=== PATIENT | male | born 1935 | race Caucasian/White ===

== ENCOUNTER → 2016-03-16 | Outpatient (CLI) | payer MEDICARE, BC ==
[2016-03-16 11:07] LABS: ABSOLUTE EOSINOPHILS # (AUTO) 0.7 10^3/uL (0.0-0.6); ABSOLUTE LYMPHOCYTES (AUTO) 1.2 10^3/uL (0.5-4.7); ABSOLUTE MONOCYTES (AUTO) 0.7 10^3/uL (0.1-1.4); ABSOLUTE NEUT (AUTO) 2.5 10^3/uL (1.7-8.2); BASOPHILS % (AUTO) 0.5 % (0-2); HEMATOCRIT 38.9 % (37.9-51.0); HEMOGLOBIN 12.5 g/dL (13.5-17.0); HGB HCT DIFFERENCE -1.4; LYMPHOCYTES % (AUTO) 22.9 % (13-45); MEAN CORPUSCULAR HEMOGLOBIN 33.7 pg (27.0-33.4); MEAN CORPUSCULAR HGB CONC 32.1 g/dL (32.0-36.0); MEAN CORPUSCULAR VOLUME 105 fl (80-97); RED CELL DISTRIBUTION WIDTH 14.1 % (11.5-14.0); SEGMENTED NEUTROPHILS % (AUTO) 49.6 % (42-78); WHITE BLOOD COUNT 5.1 10^3/uL (4.0-10.5)
[2016-03-16 11:35] LABS: ALANINE AMINOTRANSFERASE 24 U/L (21-72); ALBUMIN 3.4 g/dL (3.5-5.0); ALKALINE PHOSPHATASE 95 U/L (38-126); ANION GAP 10 (5-19); ASPARTATE AMINO TRANSFERASE 16 U/L (17-59); BILIRUBIN,TOTAL 0.8 mg/dL (0.2-1.3); BLOOD UREA NITROGEN 9 mg/dL (7-20); CARBON DIOXIDE 29 mmol/L (22-30); CHLORIDE 102 mmol/L (98-107); CREATININE RESULT 0.76 mg/dL (0.52-1.25); GLUCOSE 76 mg/dL (75-110); POTASSIUM 4.4 mmol/L (3.6-5.0); SODIUM 140.8 mmol/L (137-145); TOTAL PROTEIN 6.1 g/dL (6.3-8.2)
[2016-03-16 11:47] LABS: FREE T3 3.49 pg/mL (2.77-5.27)
[2016-03-16 11:48] LABS: ERYTHROCYTE SEDIMENTATION RATE 39 mm/hr (0-20)
[2016-03-16 12:01] LABS: THYROID STIMULATING HORMONE 1.01 uIU/mL (0.47-4.68)
[2016-03-17 17:20] LABS: APPEARANCE,URINE CLEAR; BILIRUBIN,URINE NEGATIVE (NEGATIVE); GLUCOSE, URINE NEGATIVE (NEGATIVE); KETONES,URINE 20 mg/dL (NEGATIVE); LEUKOCYTE ESTERASE,URINE NEGATIVE (NEGATIVE); NITRITE,URINE NEGATIVE (NEGATIVE); PROTEIN,URINE NEGATIVE (NEGATIVE); URINE SPECIFIC GRAVITY 1.016
== END ==
LOC: OD 10:02
PROVIDERS: ATTEND Internal Medicine
DX: R53.83 Other fatigue (principal); J06.9 Acute upper respiratory infection, unspecified; M79.1 Myalgia; M06.9 Rheumatoid arthritis, unspecified; K52.9 Noninfective gastroenteritis and colitis, unspecified
CPT/HCPCS: 36415; 80053; 81001; 84439; 84443; 84481; 85025; 85652; 87045; 87086; 87205; 87493

== ENCOUNTER → 2016-03-30 | Outpatient (CLI) | payer MEDICARE, BC | LOC: OD 10:49 | PROVIDERS: ATTEND Urology | DX: N40.0 Benign prostatic hyperplasia without lower urinary tract symptoms (principal) | CPT/HCPCS: 36415; 84153 ==

== ENCOUNTER → 2016-04-28 | Outpatient (CLI) | payer MEDICARE, BC ==
[2016-04-28 10:02] LABS: ABSOLUTE EOSINOPHILS # (AUTO) 0.3 10^3/uL (0.0-0.6); ABSOLUTE LYMPHOCYTES (AUTO) 1.3 10^3/uL (0.5-4.7); ABSOLUTE MONOCYTES (AUTO) 0.5 10^3/uL (0.1-1.4); BASOPHILS % (AUTO) 0.7 % (0-2); EOSINOPHILS % (AUTO) 6.8 % (0-6); HEMATOCRIT 35.7 % (37.9-51.0); HEMOGLOBIN 11.7 g/dL (13.5-17.0); HGB HCT DIFFERENCE -0.6; MEAN CORPUSCULAR HEMOGLOBIN 33.3 pg (27.0-33.4); MEAN CORPUSCULAR HGB CONC 32.8 g/dL (32.0-36.0); MEAN CORPUSCULAR VOLUME 101 fl (80-97); MONOCYTES % (AUTO) 11.6 % (3-13); RED BLOOD COUNT 3.53 10^6/uL (4.35-5.55); RED CELL DISTRIBUTION WIDTH 14.1 % (11.5-14.0); SEGMENTED NEUTROPHILS % (AUTO) 48.9 % (42-78); WHITE BLOOD COUNT 4.2 10^3/uL (4.0-10.5)
[2016-04-28 10:06] LABS: APPEARANCE,URINE CLEAR; BILIRUBIN,URINE NEGATIVE (NEGATIVE); GLUCOSE, URINE NEGATIVE (NEGATIVE); KETONES,URINE NEGATIVE (NEGATIVE); LEUKOCYTE ESTERASE,URINE NEGATIVE (NEGATIVE); NITRITE,URINE NEGATIVE (NEGATIVE); PROTEIN,URINE NEGATIVE (NEGATIVE); URINE SPECIFIC GRAVITY 1.013; UROBILINOGEN,URINE NEGATIVE mg/dL (<2.0)
== END ==
LOC: OD 08:58
PROVIDERS: ATTEND Student in an Organized Health Care Education/Training Program
DX: Z79.1 Long term (current) use of non-steroidal anti-inflammatories (NSAID) (principal)
CPT/HCPCS: 36415; 81001; 85025

== ENCOUNTER 2017-02-02 13:01 | Inpatient (IN) | payer MEDICARE, BC ==
[2017-02-02] MEDS ORDERED: ALBUTEROL SULFATE 0.083% NEB 2.5 MG/3 ML AMPUL NEB ONE (13:39)
[2017-02-02] MEDS ORDERED: LEVOFLOXACIN 500 MG/D5W RTU 500 MG/100 ML RTUPB IV ONE (13:39)
[2017-02-02] MEDS ORDERED: GUAIFENESIN/D-METHORPHAN (200-20 MG) SYRUP 10 ML PO ONE (13:39)
--- NOTE | 2017-02-02 13:41 | ER Document Report ---
ED Respiratory Problem - General Chief Complaint: Shortness Of Breath Stated Complaint: DIFFICULTY BREATHING Time Seen by Provider: 02/02/17 13:25 Mode of Arrival: Medic Information source: Patient, Relative Notes: Patient is an 81-year-old male who was diagnosed 2 days ago by his primary care provider with pneumonia and placed on Augmentin. Patient has not been taking it because he "cannot tolerate it." Patient has not eaten anything in 2 days per . She states he is very weak and has no appetite. They admit to chills and body aches at home but he denies any fever that he is noticed. He admits to productive cough. He does have asthma but no CHF or COPD. He denies any chest pain. He does state he has a history of some low platelets. TRAVEL OUTSIDE OF THE [place] IN LAST 30 DAYS: No - Related Data Allergies/Adverse Reactions: Sulfa (Sulfonamide Antibiotics) Allergy (Severe, Verified 01/04/16 11:51) ? morphine [Morphine] Adverse Reaction (Severe, Verified 06/18/15 22:33) Seizures Past Medical History - General Information source: Patient - Social History Smoking Status: Unknown if Ever Smoked Chew tobacco use (# tins/day): No Frequency of alcohol use: None Drug Abuse: None Family History: Other - Sister from lupus. Patient has suicidal ideation: No Patient has homicidal ideation: No - Past Medical History Cardiac Medical History: Reports: Hx Hypercholesterolemia Denies: Hx Coronary Artery Disease, Hx Heart Attack, Hx Hypertension - low Pulmonary Medical History: Reports: Hx Asthma - inhalers, Hx Bronchitis, Hx Pneumonia - in past Denies: Hx COPD, Hx Tuberculosis Neurological Medical History: Denies: Hx Cerebrovascular Accident, Hx Seizures Renal/ Medical History: Reports: Hx Benign Prostatic Hyperplasia. Denies: Hx Peritoneal Dialysis GI Medical History: Reports: Hx Ulcer - Peptic ulcer disease Musculoskeltal Medical History: Reports Hx Arthritis - Rheumatoid arthritis Psychiatric Medical History: Denies: Hx Depression Past Surgical History: Reports: Hx Appendectomy, Hx Genitourinary Surgery - Vasectomy, Hx Orthopedic Surgery - back x4 - Immunizations Hx Diphtheria, Pertussis, Tetanus Vaccination: Yes Hx Pneumococcal Vaccination: 02/26/10 Review of Systems - Review of Systems Constitutional: No symptoms reported EENT: No symptoms reported Cardiovascular: No symptoms reported Respiratory: See HPI Gastrointestinal: No symptoms reported Genitourinary: No symptoms reported Male Genitourinary: No symptoms reported Musculoskeletal: No symptoms reported Skin: No symptoms reported Hematologic/Lymphatic: No symptoms reported Neurological/Psychological: No symptoms reported Physical Exam - Vital signs Vitals: Resp Pulse Ox 27 H 99 02/02/17 13:14 02/02/17 13:14 - Notes Notes: PHYSICAL EXAMINATION: GENERAL: Mildly ill-appearing, but in no acute distress. HEAD: Atraumatic, normocephalic. EYES: Pupils equal round and reactive to light, extraocular movements intact, sclera anicteric, conjunctiva are normal. ENT: ear canals without erythema or foreign body, TMs pearly ellis with good bony landmarks, nares patent, oropharynx clear without exudates. Moist mucous membranes. NECK: Normal range of motion, supple without lymphadenopathy LUNGS: Mild expiratory wheezes, no rales or rhonchi. HEART: Regular rate and rhythm without murmurs ABDOMEN: Soft, no tenderness. No guarding, no rebound BACK: no vertebral tenderness, normal ROM GI/: no CVA tenderness EXTREMITIES: Normal range of motion, no pitting edema. No cyanosis. NEUROLOGICAL: Cranial nerves grossly intact. Normal sensory/motor exams. PSYCH: Normal mood, normal affect. SKIN: Warm, Dry, normal turgor, erythema to right upper back wrapping around to right upper torso with vesicular lesions c/w shingles Course - Re-evaluation Re-evalutation: 02/02/17 15:10 Patient has a likely right middle lobe pneumonia on x-ray today. Platelets are low at 68, patient does wax and wane with low platelets patient is needing to be on oxygen at this time to remain over 93% per patient and chart review. He was picked up at 80% on room air by EMS. Dr. Lebron agrees to admission now for pneumonia. I started levaquin. - Vital Signs Vital signs: Temp Pulse Resp BP Pulse Ox 98.7 F 21 H 111/65 98 02/02/17 13:41 02/02/17 14:01 02/02/17 14:01 02/02/17 14:01 - Laboratory Result Diagrams: 02/02/17 13:20 02/02/17 13:20 Laboratory results interpreted by me: 02/02/17 02/02/17 13:20 13:20 WBC 3.5 L RBC 4.02 L MCV 101 H MCH 34.7 H RDW 14.2 H Plt Count 68 L Sodium 133.3 L Direct Bilirubin 0.5 H Total Protein 5.5 L Albumin 3.1 L Discharge - Discharge Clinical Impression: Hypoxia Pneumonia Qualifiers: Pneumonia type: due to unspecified organism Laterality: right Lung location: unspecified part of lung Qualified Code(s): J18.9 - Pneumonia, unspecified organism Condition: Stable Disposition: ADMITTED INPATIENT Admitting Provider: Hospitalist Unit Admitted: Medical Floor Referrals: ROSE ALMARAZ MD [Primary Care Provider] - Follow up as needed
[2017-02-02 14:02] LABS: HEMATOCRIT 40.5 % (37.9-51.0); HGB HCT DIFFERENCE 1.5; MEAN CORPUSCULAR HEMOGLOBIN 34.7 pg (27.0-33.4); MEAN CORPUSCULAR HGB CONC 34.4 g/dL (32.0-36.0); MEAN CORPUSCULAR VOLUME 101 fl (80-97); RED BLOOD COUNT 4.02 10^6/uL (4.35-5.55); RED CELL DISTRIBUTION WIDTH 14.2 % (11.5-14.0); WHITE BLOOD COUNT 3.5 10^3/uL (4.0-10.5)
[2017-02-02 14:09] LABS: ALANINE AMINOTRANSFERASE 31 U/L (21-72); ALBUMIN 3.1 g/dL (3.5-5.0); ALKALINE PHOSPHATASE 75 U/L (38-126); ANION GAP 11 (5-19); ASPARTATE AMINO TRANSFERASE 17 U/L (17-59); BILIRUBIN,DIRECT 0.5 mg/dL (0.0-0.4); BILIRUBIN,TOTAL 1.3 mg/dL (0.2-1.3); BLOOD UREA NITROGEN 16 mg/dL (7-20); CALCIUM 8.4 mg/dL (8.4-10.2); CARBON DIOXIDE 23 mmol/L (22-30); CHLORIDE 99 mmol/L (98-107); CREATININE RESULT 0.89 mg/dL (0.52-1.25); GLUCOSE 83 mg/dL (75-110); POTASSIUM 4.5 mmol/L (3.6-5.0); SODIUM 133.3 mmol/L (137-145); TOTAL PROTEIN 5.5 g/dL (6.3-8.2)
[2017-02-02] MEDS ORDERED: LIDOCAINE 2% JELLY 30 ML TUBE TOP ONE (14:15)
[2017-02-02] MEDS ORDERED: HYDROCODONE/ACETAMINOPHEN 5-325 MG TABLET PO ONE ×2 (14:15→14:39)
[2017-02-02] MEDS ORDERED: HYDROCODONE/ACETAMINOPHEN 5-325 MG 6 TAB/DSPK PO PRN (14:17)
[2017-02-02 14:23] LABS: ABSOLUTE EOSINOPHILS# (MANUAL) 0.1 10^3/uL (0.0-0.6); BASOPHILS % (MANUAL) 0 % (0-2); EOSINOPHILS % (MANUAL) 3 % (0-6); LYMPHOCYTES % (MANUAL) 28 % (13-45); TOTAL CELLS COUNTED 100
[2017-02-02 14:25] LABS: ANISOCYTOSIS SLIGHT
[2017-02-02] MEDS ORDERED: LIDOCAINE 4% TOPICAL SOLN 50 ML TOP ONE (14:40)
--- NOTE | 2017-02-02 14:46 | RADIOLOGY REPORT (SQ) ---
EXAM DESCRIPTION: CHEST SINGLE VIEW COMPLETED DATE/TIME: 02/02/2017 2:37 pm REASON FOR STUDY: pneumonia/ sob COMPARISON: 01/04/2016 EXAM PARAMETERS: NUMBER OF VIEWS: One view. TECHNIQUE: Single frontal radiographic view of the chest acquired. RADIATION DOSE: NA LIMITATIONS: None. FINDINGS: LUNGS AND PLEURA: Low lung volumes. Chronic interstitial changes. Ill-defined opacificat ion in the left lung. MEDIASTINUM AND HILAR STRUCTURES: Hiatal hernia is suggested. HEART AND VASCULAR STRUCTURES: Heart normal in size. Normal vasculature. BONES: No acute findings. HARDWARE: None in the chest. OTHER: No other significant finding. IMPRESSION: Cannot exclude limited lingular or lower lobe pneumonia on the left. TECHNICAL DOCUMENTATION: JOB ID: [id number] [email or web address] All Rights Reserved
[2017-02-02 15:45] LABS: VENOUS BLOOD BASE EXCESS 1.5 mmol/L; VENOUS BLOOD HCO3 25.9 mmol/L (20-32); VENOUS BLOOD PCO2 40.1 mmHg (35-63); VENOUS BLOOD PH 7.43 (7.30-7.42)
[2017-02-02] MEDS ORDERED: ONDANSETRON HCL INJ/PF 4 MG/2 ML SDV IV PRN (16:02)
[2017-02-02] MEDS ORDERED: ONDANSETRON 4 MG TAB.RAPDIS PO PRN (16:02)
[2017-02-02] MEDS ORDERED: ACETAMINOPHEN 325 MG TABLET PO PRN (16:02)
--- NOTE | 2017-02-02 16:18 | PDOC H&P ---
History of Present Illness Admission Date/PCP: 02/02/17 15:22 ROSE ALMARAZ, Patient complains of: Cough and shortness of breath History of Present Illness: AMBER HINSON is a 81 year old male with a history of rheumatoid arthritis who presents with a 3 day history of a nonproductive cough and shortness of breath. The patient was recently diagnosed with shingles on his right chest in the T4-T5 distribution. He has been taking Valtrex but has had pain and has not been breathing as well. He has had a nonproductive cough. He is also had some fevers and chills. Patient with chest x-ray today was found to have pneumonia. Patient denies any lower extremity edema. He denies any orthopnea or PND. He is however unable to sleep out of bed because of his chronic back pain and multiple kyphoplasty's. He reports he gets short of breath with minimal exertion at this time. He denies any cardiac type chest pain. He does have right-sided chest wall pain related to his recent shingles diagnosis. The patient denies any recent travel. He is on immunosuppressants for his rheumatoid arthritis in the form of prednisone, methotrexate, Plaquenil. Patient is admitted for treatment of his pneumonia. Past Medical History Cardiac Medical History: Reports: Hyperlipidema Denies: Coronary Artery Disease, Myocardial Infarction, Hypertension - low Pulmonary Medical History: Reports: Asthma - inhalers, Bronchitis, Pneumonia - in past Denies: Chronic Obstructive Pulmonary Disease (COPD), Tuberculosis EENT Medical History: Reports: Cataracts Neurological Medical History: Denies: Seizures Endocrine Medical History: Reports: None Renal/ Medical History: Reports: None Malignancy Medical History: Reports: None GI Medical History: Reports: None Musculoskeltal Medical History: Reports: Arthritis - Rheumatoid arthritis Skin Medical History: Reports: Other - Herpes zoster in the right chest Psychiatric Medical History: Denies: Depression Traumatic Medical History: Reports: None Hematology: Reports: Anemia - hx of Infectious Medical History: Reports: None Past Surgical History Past Surgical History: Reports: Appendectomy, Orthopedic Surgery - back x4 Social History Information Source: Patient Lives with: Spouse/Significant other Smoking Status: Former Smoker Frequency of Alcohol Use: Occasional Hx Recreational Drug Use: No Drugs: None Hx Prescription Drug Abuse: No - Advance Directive Resuscitation Status: Full Code Surrogate healthcare decision maker:: His Family History Family History: Other - Sister from lupus. Family History: Father at age 69 from COPD. Mother at age 89 with coronary artery disease. Parental Family History Reviewed: Yes Children Family History Reviewed: No Sibling(s) Family History Reviewed.: No Medication/Allergy Allergies/Adverse Reactions: Sulfa (Sulfonamide Antibiotics) Allergy (Severe, Verified 01/04/16 11:51) ? morphine [Morphine] Adverse Reaction (Severe, Verified 06/18/15 22:33) Seizures Review of Systems Constitutional: PRESENT: anorexia, chills, fever(s), weight loss. ABSENT: headache(s), night sweats, weight gain Eyes: ABSENT: visual disturbances Ears: ABSENT: hearing changes Cardiovascular: PRESENT: dyspnea on exertion. ABSENT: chest pain, edema, orthropnea, palpitations Respiratory: PRESENT: cough, dyspnea. ABSENT: hemoptysis, sputum Gastrointestinal: ABSENT: abdominal pain, constipation, diarrhea, hematemesis, hematochezia, nausea, vomiting Genitourinary: PRESENT: difficulty urinating, other - Urinary incontinence Musculoskeletal: PRESENT: back pain Integumentary: PRESENT: other - Herpes zoster on the right T4-T5 nerve root distribution Neurological: PRESENT: confusion, dizziness, lack of coordination Psychiatric: ABSENT: anxiety, depression Endocrine: ABSENT: cold intolerance, heat intolerance, polydipsia, polyuria Hematologic/Lymphatic: ABSENT: easy bleeding, easy bruising Physical Exam Vital Signs: Temp Pulse Resp BP Pulse Ox 98.7 F 21 H 111/65 98 02/02/17 13:41 02/02/17 14:01 02/02/17 14:01 02/02/17 14:01 General appearance: PRESENT: no acute distress, thin Head exam: PRESENT: atraumatic, normocephalic Eye exam: PRESENT: conjunctiva pink, EOMI, PERRLA. ABSENT: scleral icterus Ear exam: PRESENT: normal external ear exam Mouth exam: PRESENT: moist, tongue midline Neck exam: ABSENT: carotid bruit, JVD, lymphadenopathy, thyromegaly Respiratory exam: PRESENT: chest wall tenderness - Right chest wall in the area of the shingles., rales - Left basilar. ABSENT: rhonchi, wheezes Cardiovascular exam: PRESENT: RRR. ABSENT: diastolic murmur, rubs, systolic murmur Vascular exam: PRESENT: normal capillary refill GI/Abdominal exam: PRESENT: normal bowel sounds, soft. ABSENT: distended, guarding, mass, organolmegaly, rebound, tenderness Rectal exam: PRESENT: deferred Extremities exam: ABSENT: calf tenderness, clubbing, pedal edema Neurological exam: PRESENT: alert, awake, oriented to person, oriented to place , oriented to time, oriented to situation, CN II-XII grossly intact. ABSENT: motor sensory deficit Psychiatric exam: PRESENT: appropriate affect Skin exam: PRESENT: other - Erythematous papular rash in the right T4-T5 nerve root distribution on the posterior radiate around to the anterior chest wall Consistent with herpes zoster Results Laboratory Results: 02/02/17 15:30 VBG pH 7.43 H VBG pCO2 40.1 VBG HCO3 25.9 VBG Base Excess 1.5 Impressions: Chest X-Ray 02/02/17 13:39 IMPRESSION: Cannot exclude limited lingular or lower lobe pneumonia on the left. Assessment & Plan - Diagnosis (1) Pneumonia Qualifiers: Pneumonia type: due to unspecified organism Laterality: right Lung location: unspecified part of lung Qualified Code(s): J18.9 - Pneumonia, unspecified organism Is this a current diagnosis for this admission?: Yes Plan: Patient has community-acquired pneumonia. Most likely made worse by his recent diagnosis of shingles that has caused him significant pain with breathing. We will treat with Levaquin for presumed gram-positive cocci. We will hold his methotrexate and Plaquenil given the acute infection. We will give stress dose steroids of prednisone 10 mg. (2) Herpes zoster Is this a current diagnosis for this admission?: Yes Plan: We will continue with the Valtrex that he has been taking at home. (3) Rheumatoid arthritis Is this a current diagnosis for this admission?: Yes Plan: We will hold the Plaquenil methotrexate. Will give higher dose of prednisone. (4) Chronic back pain Is this a current diagnosis for this admission?: Yes Plan: Continue with the narcotics as needed. (5) Asthma Is this a current diagnosis for this admission?: Yes Plan: We will give nebulizers as needed. - Time Time Spent: 50 to 70 Minutes - Inpatient Certification Medical Necessity: Need for IV Antibiotics
[2017-02-02] MEDS ORDERED: NORMAL SALINE 1000 ML 1,000 ML IV ONE ×2 (16:39→22:01)
[2017-02-02] MEDS: NORMAL SALINE 1000 ML 1,000 ML IV PRN (18:31)
[2017-02-02] MEDS: IPRATROPIUM/ALBUTEROL 0.5-2.5 MG/3 ML AMPUL NEB SCH (20:01)
[2017-02-02 20:47] LABS: APPEARANCE,URINE CLEAR; BILIRUBIN,URINE NEGATIVE (NEGATIVE); GLUCOSE, URINE NEGATIVE (NEGATIVE); KETONES,URINE NEGATIVE (NEGATIVE); LEUKOCYTE ESTERASE,URINE NEGATIVE (NEGATIVE); NITRITE,URINE NEGATIVE (NEGATIVE); PROTEIN,URINE NEGATIVE (NEGATIVE); URINE SPECIFIC GRAVITY 1.005; UROBILINOGEN,URINE NEGATIVE mg/dL (<2.0)
--- NOTE | 2017-02-02 21:50 | EKG REPORT ---
SEVERITY:- ABNORMAL ECG - SINUS RHYTHM ATRIAL PREMATURE COMPLEX LEFT ANTERIOR FASCICULAR BLOCK : Confirmed by: Mercedes Boles 02-Feb-2017 21:49:14
[2017-02-02] MEDS ORDERED: VALACYCLOVIR HCL 500 MG TABLET ONE (22:58)
[2017-02-02] MEDS: OXYCODONE-ACETAMINOPHEN 5-325 MG TABLET PO PRN (23:16)
[2017-02-02] MEDS: VALACYCLOVIR HCL 500 MG TABLET PO SCH (23:17)
[2017-02-02] MEDS: FAMOTIDINE 20 MG TABLET PO SCH (23:17)
[2017-02-03] MEDS: IPRATROPIUM/ALBUTEROL 0.5-2.5 MG/3 ML AMPUL NEB SCH ×4 (02:04→20:26)
[2017-02-03] MEDS: NORMAL SALINE 1000 ML 1,000 ML IV PRN ×3 (03:50→23:48)
[2017-02-03 05:54] LABS: ABSOLUTE EOSINOPHILS # (AUTO) 0.1 10^3/uL (0.0-0.6); ABSOLUTE LYMPHOCYTES (AUTO) 0.7 10^3/uL (0.5-4.7); ABSOLUTE MONOCYTES (AUTO) 0.4 10^3/uL (0.1-1.4); ABSOLUTE NEUT (AUTO) 1.5 10^3/uL (1.7-8.2); WHITE BLOOD COUNT 2.7 10^3/uL (4.0-10.5)
[2017-02-03] MEDS: OXYCODONE-ACETAMINOPHEN 5-325 MG TABLET PO PRN ×4 (05:57→23:47)
[2017-02-03] MEDS: VALACYCLOVIR HCL 500 MG TABLET PO SCH ×3 (05:57→22:22)
[2017-02-03 06:09] LABS: ANION GAP 7 (5-19); BLOOD UREA NITROGEN 14 mg/dL (7-20); CALCIUM 8.2 mg/dL (8.4-10.2); CARBON DIOXIDE 25 mmol/L (22-30); CHLORIDE 103 mmol/L (98-107); CREATININE RESULT 0.78 mg/dL (0.52-1.25); GLUCOSE 80 mg/dL (75-110); POTASSIUM 4.2 mmol/L (3.6-5.0); SODIUM 135.4 mmol/L (137-145)
[2017-02-03 06:15] LABS: HEMATOCRIT 36.8 % (37.9-51.0); HEMOGLOBIN 12.6 g/dL (13.5-17.0); MEAN CORPUSCULAR HEMOGLOBIN 34.4 pg (27.0-33.4); MEAN CORPUSCULAR HGB CONC 34.1 g/dL (32.0-36.0); MEAN CORPUSCULAR VOLUME 101 fl (80-97); RED BLOOD COUNT 3.65 10^6/uL (4.35-5.55); RED CELL DISTRIBUTION WIDTH 14.2 % (11.5-14.0)
[2017-02-03 06:16] LABS: BASOPHILS % (AUTO) 0.8 % (0-2); LYMPHOCYTES % (AUTO) 25.7 % (13-45); MONOCYTES % (AUTO) 14.4 % (3-13); SEGMENTED NEUTROPHILS % (AUTO) 54.1 % (42-78)
[2017-02-03] MEDS: PREDNISONE 10 MG TABLET PO SCH (09:53)
[2017-02-03] MEDS: FAMOTIDINE 20 MG TABLET PO SCH ×2 (09:53→22:22)
[2017-02-03] MEDS: ENOXAPARIN SODIUM INJ 40 MG/0.4 ML DISP.SYRIN SUBCUT SCH (09:54)
[2017-02-03] MEDS ORDERED: LEVOFLOXACIN 750 MG/D5W RTU 750 MG/150 ML RTUPB IV SCH (12:00)
--- NOTE | 2017-02-03 12:54 | PDOC PROGRESS REPORT ---
Subjective Progress Note for:: 02/03/17 Subjective:: Denies any complaints. Reason For Visit: PNEUMONIA,SHINGLES Physical Exam Vital Signs: Temp Pulse Resp BP Pulse Ox 98.0 F 81 18 121/62 97 02/03/17 07:35 02/03/17 07:48 02/03/17 07:48 02/03/17 07:35 02/03/17 07:48 Intake & Output 02/02/17 02/03/17 02/04/17 06:59 06:59 06:59 Intake Total 1334 Balance 1334 Weight 72.5 kg General appearance: PRESENT: no acute distress Eye exam: PRESENT: conjunctiva pink. ABSENT: scleral icterus Mouth exam: PRESENT: moist, tongue midline Neck exam: ABSENT: JVD Respiratory exam: PRESENT: rhonchi - Coarse rhonchi bilaterally.. ABSENT: rales , wheezes Cardiovascular exam: PRESENT: RRR. ABSENT: diastolic murmur, rubs, systolic murmur GI/Abdominal exam: PRESENT: normal bowel sounds, soft. ABSENT: distended, guarding, mass, organolmegaly, rebound, tenderness Extremities exam: ABSENT: calf tenderness, clubbing, pedal edema Neurological exam: PRESENT: alert, awake, oriented to person, oriented to place , oriented to time, oriented to situation, CN II-XII grossly intact. ABSENT: motor sensory deficit Psychiatric exam: PRESENT: appropriate affect Skin exam: PRESENT: other - Vesicular papular rash right chest wall Results Laboratory Results: 02/03/17 05:22 02/03/17 05:22 02/02/17 02/02/17 02/03/17 15:30 19:50 05:22 WBC 2.7 L RBC 3.65 L Hgb 12.6 L Hct 36.8 L MCV 101 H MCH 34.4 H MCHC 34.1 RDW 14.2 H Plt Count 53 L Seg Neutrophils % 54.1 Lymphocytes % 25.7 Monocytes % 14.4 H Eosinophils % 5.0 Basophils % 0.8 Absolute Neutrophils 1.5 L Absolute Lymphocytes 0.7 Absolute Monocytes 0.4 Absolute Eosinophils 0.1 Absolute Basophils 0.0 VBG pH 7.43 H VBG pCO2 40.1 VBG HCO3 25.9 VBG Base Excess 1.5 Sodium Potassium Chloride Carbon Dioxide Anion Gap BUN Creatinine Est GFR ( Amer) Est GFR (Non-Af Amer) Glucose Calcium Urine Color YELLOW Urine Appearance CLEAR Urine pH 7.0 Ur Specific [place] 1.005 Urine Protein NEGATIVE Urine Glucose (UA) NEGATIVE Urine Ketones NEGATIVE Urine Blood NEGATIVE Urine Nitrite NEGATIVE Ur Leukocyte Esterase NEGATIVE Urine WBC (Auto) 0 Urine RBC (Auto) 1 02/03/17 05:22 WBC RBC Hgb Hct MCV MCH MCHC RDW Plt Count Seg Neutrophils % Lymphocytes % Monocytes % Eosinophils % Basophils % Absolute Neutrophils Absolute Lymphocytes Absolute Monocytes Absolute Eosinophils Absolute Basophils VBG pH VBG pCO2 VBG HCO3 VBG Base Excess Sodium 135.4 L Potassium 4.2 Chloride 103 Carbon Dioxide 25 Anion Gap 7 BUN 14 Creatinine 0.78 Est GFR ( Amer) > 60 Est GFR (Non-Af Amer) > 60 Glucose 80 Calcium 8.2 L Urine Color Urine Appearance Urine pH Ur Specific [place] Urine Protein Urine Glucose (UA) Urine Ketones Urine Blood Urine Nitrite Ur Leukocyte Esterase Urine WBC (Auto) Urine RBC (Auto) Impressions: Chest X-Ray 02/02/17 13:39 IMPRESSION: Cannot exclude limited lingular or lower lobe pneumonia on the left. Assessment & Plan - Diagnosis (1) Pneumonia Qualifiers: Pneumonia type: due to unspecified organism Laterality: right Lung location: unspecified part of lung Qualified Code(s): J18.9 - Pneumonia, unspecified organism Is this a current diagnosis for this admission?: Yes Plan: Patient has community-acquired pneumonia. Most likely made worse by his recent diagnosis of shingles that has caused him significant pain with breathing. We will treat with Levaquin for presumed gram-positive cocci. We will hold his methotrexate and Plaquenil given the acute infection. We will give stress dose steroids of prednisone 10 mg. (2) Herpes zoster Is this a current diagnosis for this admission?: Yes Plan: We will continue with the Valtrex that he has been taking at home. (3) Rheumatoid arthritis Is this a current diagnosis for this admission?: Yes Plan: We will hold the Plaquenil methotrexate. Will give higher dose of prednisone. (4) Chronic back pain Is this a current diagnosis for this admission?: Yes Plan: Continue with the narcotics as needed. (5) Asthma Is this a current diagnosis for this admission?: Yes Plan: We will give nebulizers as needed. - Time Time Spent with patient: 25-34 minutes - Inpatient Certification Medical Necessity: Need for IV Antibiotics
[2017-02-04] MEDS: IPRATROPIUM/ALBUTEROL 0.5-2.5 MG/3 ML AMPUL NEB SCH ×2 (02:16→07:36)
[2017-02-04] MEDS: VALACYCLOVIR HCL 500 MG TABLET PO SCH (06:46)
[2017-02-04] MEDS: OXYCODONE-ACETAMINOPHEN 5-325 MG TABLET PO PRN (06:47)
[2017-02-04] MEDS: ENOXAPARIN SODIUM INJ 40 MG/0.4 ML DISP.SYRIN SUBCUT SCH (09:24)
[2017-02-04] MEDS: PREDNISONE 10 MG TABLET PO SCH (09:24)
[2017-02-04] MEDS: FAMOTIDINE 20 MG TABLET PO SCH (09:24)
[2017-02-04 09:51] VITALS: BP 130/60
--- NOTE | 2017-02-04 10:23 | PDOC DISCHARGE SUMMARY ---
General - Admit/Disc Date/PCP Admission Date/Primary Care Provider: 02/02/17 15:22 ROSE ALMARAZ, Discharge Date: 02/04/17 - Discharge Diagnosis (1) Pneumonia Is this a current diagnosis for this admission?: Yes (2) Herpes zoster Is this a current diagnosis for this admission?: Yes (3) Rheumatoid arthritis Is this a current diagnosis for this admission?: Yes (4) Chronic back pain Is this a current diagnosis for this admission?: Yes (5) Asthma Is this a current diagnosis for this admission?: Yes - Additional Information Resuscitation Status: Full Code Discharge Diet: Cardiac Discharge Activity: Activity As Tolerated Home Medications: Albuterol Sulfate [Proair HFA Inhalation Aerosol 8.5 gm MDI] 2 puff IH Q4HP PRN 02/02/17 Alfuzosin HCl [Alfuzosin HCl ER] 10 mg PO PCSUPPER 02/02/17 Calcium Carbonate [Calcium] 600 mg PO DAILY 02/02/17 Finasteride [Proscar 5 mg Tablet] 5 mg PO DAILY 02/02/17 Folic Acid 0.8 mg PO DAILY 02/02/17 Hydrocodone/Acetaminophen [Hydrocodone-Acetamin 5-325 mg] 1 each PO Q6HP PRN 10/12 Hydroxychloroquine Sulfate [Plaquenil 200 mg Tablet] 200 mg PO BID 02/02/17 Methotrexate Sodium [Methotrexate] 2.5 mg PO WE@1000 02/02/17 Omeprazole 40 mg PO DAILY 02/02/17 Prednisone [Deltasone 5 mg Tablet] 7.5 mg PO DAILY 02/02/17 Levofloxacin [Levaquin 750 mg Tablet] 750 mg PO DAILY #5 tablet 02/04/17 Valacyclovir HCl [Valtrex 500 mg Tablet] 1,000 mg PO Q8 tablet 02/04/17 History of Present Illness History of Present Illness: AMBER HINSON is a 81 year old male with a history of rheumatoid arthritis who presents with a 3 day history of a nonproductive cough and shortness of breath. The patient was recently diagnosed with shingles on his right chest in the T4-T5 distribution. He has been taking Valtrex but has had pain and has not been breathing as well. He has had a nonproductive cough. He is also had some fevers and chills. Patient with chest x-ray today was found to have pneumonia. Patient denies any lower extremity edema. He denies any orthopnea or PND. He is however unable to sleep out of bed because of his chronic back pain and multiple kyphoplasty's. He reports he gets short of breath with minimal exertion at this time. He denies any cardiac type chest pain. He does have right-sided chest wall pain related to his recent shingles diagnosis. The patient denies any recent travel. He is on immunosuppressants for his rheumatoid arthritis in the form of prednisone, methotrexate, Plaquenil. Patient is admitted for treatment of his pneumonia. Hospital Course Hospital Course: 81-year-old gentleman who presented with pneumonia. Patient was started on Levaquin empirically and has clinically improved. Cultures have been negative so far. His respiratory status is improved and he is satting well on room air. Will send home on a course of Levaquin. The patient also was noted to have right chest wall zoster. This was treated with continuing his acyclovir. The patient still has some weeping lesions on his chest but at least half have dried up. The patient will continue with his acyclovir. Physical Exam Vital Signs: Temp Pulse Resp BP Pulse Ox 97.9 F 70 18 130/60 H 96 02/04/17 09:49 02/04/17 09:49 02/04/17 09:49 02/04/17 09:49 02/04/17 09:49 Intake & Output 02/03/17 02/04/17 02/05/17 06:59 06:59 06:59 Intake Total 1334 2450 Balance 1334 2450 Weight 72.5 kg 72.5 kg General appearance: PRESENT: no acute distress Eye exam: PRESENT: conjunctiva pink. ABSENT: scleral icterus Mouth exam: PRESENT: moist, tongue midline Respiratory exam: PRESENT: clear to auscultation alia. ABSENT: rales, rhonchi, wheezes Cardiovascular exam: PRESENT: RRR. ABSENT: diastolic murmur, rubs, systolic murmur GI/Abdominal exam: PRESENT: normal bowel sounds, soft. ABSENT: distended, guarding, mass, organolmegaly, rebound, tenderness Extremities exam: PRESENT: full ROM. ABSENT: calf tenderness, clubbing, pedal edema Neurological exam: PRESENT: alert, awake, oriented to person, oriented to place , oriented to time, oriented to situation, CN II-XII grossly intact. ABSENT: motor sensory deficit Psychiatric exam: PRESENT: appropriate affect Skin exam: PRESENT: other - Herpes zoster on the right T4-T5 nerve root distribution. Results Laboratory Results: 02/03/17 05:22 02/03/17 05:22 Impressions: Chest X-Ray 02/02/17 13:39 IMPRESSION: Cannot exclude limited lingular or lower lobe pneumonia on the left. Qualifiers PATEINT BEING DISCHARGED WITH ANY OF THE FOLLOWING DIAGNOSIS?: No Plan Discharge Plan: Patient is discharged to home. Follow-up with his primary care in 1 week. Time Spent: Greater than 30 Minutes
== END 2017-02-04 10:28 | disposition home or self-care (01) | DRG 195 ==
LOC: ER 13:01 → EH 15:22 → 5 16:59
PROVIDERS: ADMIT Internal Medicine; ATTEND Internal Medicine
DX: J18.9 Pneumonia, unspecified organism (principal); B02.9 Zoster without complications; M06.9 Rheumatoid arthritis, unspecified; M54.9 Dorsalgia, unspecified; G89.29 Other chronic pain; J45.909 Unspecified asthma, uncomplicated; E78.5 Hyperlipidemia, unspecified; Z79.899 Other long term (current) drug therapy; Z87.891 Personal history of nicotine dependence; Z88.2 Allergy status to sulfonamides; Z88.8 Allergy status to other drugs, medicaments and biological substances
CPT/HCPCS: 36415; 71010; 80048; 80053; 81001; 82803; 83605; 85025; 87040; 93005; 93010; 94640; 96365; 99285; J1956; J3490; J7030; J7512; J7620

== ENCOUNTER → 2017-08-27 | Outpatient (CLI) | payer MEDICARE, BC ==
[2017-08-27 10:22] LABS: ABSOLUTE EOSINOPHILS # (AUTO) 0.4 10^3/uL (0.0-0.6); ABSOLUTE LYMPHOCYTES (AUTO) 1.5 10^3/uL (0.5-4.7); ABSOLUTE MONOCYTES (AUTO) 0.5 10^3/uL (0.1-1.4); ABSOLUTE NEUT (AUTO) 1.6 10^3/uL (1.7-8.2); BASOPHILS % (AUTO) 0.7 % (0-2); EOSINOPHILS % (AUTO) 10.6 % (0-6); HEMATOCRIT 35.9 % (37.9-51.0); LYMPHOCYTES % (AUTO) 36.9 % (13-45); MEAN CORPUSCULAR HEMOGLOBIN 34.1 pg (27.0-33.4); MEAN CORPUSCULAR HGB CONC 33.4 g/dL (32.0-36.0); MEAN CORPUSCULAR VOLUME 102 fl (80-97); MONOCYTES % (AUTO) 11.2 % (3-13); RED BLOOD COUNT 3.52 10^6/uL (4.35-5.55); RED CELL DISTRIBUTION WIDTH 14.2 % (11.5-14.0); SEGMENTED NEUTROPHILS % (AUTO) 40.6 % (42-78); TOTAL CELLS COUNTED % (AUTO) 100 %
[2017-08-27 10:44] LABS: ALANINE AMINOTRANSFERASE 24 U/L (21-72); ALBUMIN 3.3 g/dL (3.5-5.0); ALKALINE PHOSPHATASE 50 U/L (38-126); ANION GAP 6 (5-19); ASPARTATE AMINO TRANSFERASE 16 U/L (17-59); BILIRUBIN,DIRECT 0.3 mg/dL (0.0-0.4); BILIRUBIN,TOTAL 0.9 mg/dL (0.2-1.3); BLOOD UREA NITROGEN 11 mg/dL (7-20); CALCIUM 8.7 mg/dL (8.4-10.2); CARBON DIOXIDE 31 mmol/L (22-30); CHLORIDE 105 mmol/L (98-107); CHOLESTEROL 149.36 mg/dL (0-200); GLUCOSE 76 mg/dL (75-110); POTASSIUM 4.3 mmol/L (3.6-5.0); SODIUM 141.9 mmol/L (137-145); TRIGLYCERIDES 85 mg/dL (<150)
[2017-08-27 11:10] LABS: DIRECT LDL 76 mg/dL (<100)
[2017-08-27 11:11] LABS: PLATELET COUNT 84 10^3/uL (150-450)
== END ==
LOC: OD 08:46
PROVIDERS: ATTEND Internal Medicine
DX: M06.9 Rheumatoid arthritis, unspecified (principal); E78.5 Hyperlipidemia, unspecified; R35.1 Nocturia; R53.83 Other fatigue; J45.909 Unspecified asthma, uncomplicated
CPT/HCPCS: 36415; 80053; 80061; 84153; 84443; 85025

== ENCOUNTER → 2018-02-07 | Outpatient (CLI) | payer MEDICARE, BC ==
--- NOTE | 2018-02-07 10:48 | WOMENS IMAGING REPORT ---
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 TECHNIQUE: Dual-Energy X-ray Absorptiometry (DEXA) of the AP Spine and Hip. LIMITATIONS: None. FINDINGS: LEFT FOREARM: The bone mineral density (BMD) measured from L1-L4 in the AP projection correlates with a T-score of -2.8, which is osteoporosis as defined by the World Health Organization. HIP: The bone mineral density (BMD) measured in the left hip correlates with a T-score of -1.2, which is o steopenia as defined by the World Health Organization. IMPRESSION: 1. LEFT FOREARM: OSTEOPOROSIS. 2. HIP: OSTEOPENIA. COMMENT: The World Health Organization defines low BMD as follows: T-score: Normal: Greater than -1.0 Osteopenia: Between -1.0 and -2.5 Osteoporosis: Less than -2.5 without fractures Established osteoporosis: Less than -2.5 with fractures In general, you may wish to consider: Diagnosis Treatment Follow-up DEXA Normal BMD Prevention 2-3 years Osteopenia Prevention/Therapy 1-2 years Osteoporosis Therapy Yearly TECHNICAL DOCUMENTATION: JOB ID: [id number] [employer]- All Rights Reserved Reading location - IP/workstation name: [email or web address]
== END ==
LOC: WI 09:31
PROVIDERS: ATTEND Internal Medicine
DX: M81.0 Age-related osteoporosis without current pathological fracture (principal)
CPT/HCPCS: 77080

== ENCOUNTER → 2018-11-13 | Day surgery (SDC) | payer MEDICARE, BC ==
--- NOTE | 2018-11-13 16:17 | RADIOLOGY REPORT (SQ) ---
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 Reconstructed coronal and sagittal MPR images reviewed. All images stored on PACS. All CT scanners at this facility use dose modulation, iterative reconstruction, and/or weight based d osing when appropriate to reduce radiation dose to as low as reasonably achievable (ALARA). [facility]: Dose Right [facility]: CareDose [facility]: Dose Right [facility]: Teradose 4D [facility]: cloud.IQ CONTRAST TYPE AND DOSE: contrast/concentration: Isovue 350.00 mg/ml; Total Contrast Delivered: 75.0 ml; Total Saline Delivered: 55.0 ml RENAL FUNCTION: Creatinine 0.7 RADIATION DOSE: 21 mGy . LIMITATIONS: None. FINDINGS: Patient indicates a palpable abnormality over the right parotid region. A marker was plac ed on the patient's skin. Deep to the skin marker, along the inferior aspect of the superficial lobe parotid gland just dorsal to the facial vein, a mixed cystic and solid peripheral rim enhancing mass is present worrisome for e ither primary parotid tumor or malignant intraparotid lymph node. This measures 3.6 cm AP x 3.7 cm t ransverse by 4 cm craniocaudad (was 2.8 cm AP x 2 cm transverse by [address] 03/31/2015). Small periparotid or intraparotid lymph nodes are seen on the right side, with a 9 x 7 mm node on axi al image 50, and a 12 x 7 mm node on axial image 51. No right parotid calcifications or dilated duct s. No inflammatory change in the surrounding soft tissues. The left parotid gland is unremarkable. No cysts. No stones. No dilated ducts. 11 x 8 mm periparo tid lymph node axial image 47, 1.3 x 0.8 cm periparotid lymph node axial image 48. SKULL BASE: Inferior brain parenchyma in the field of view is unremarkable MAJOR SALIVARY GLANDS: Right intraparotid mass as above. Small bilateral intraparotid/periparotid ly mph nodes as above. The submandibular and sublingual glands are unremarkable. LYMPHADENOPATHY: No adenopathy. MUCOSAL MASSES OR ASYMMETRY: No mucosal masses or asymmetry. LARYNX/CORDS: No abnormal findings. VASCULAR STRUCTURES: Calcified carotid bifurcations bilaterally. Less than 50% proximal ICA stenosis bilaterally. Codominant vertebral arteries are patent. LUNG APICES: Bilateral upper lobe pleuroparenchymal scarring is present. Enlarged airspaces are pres ent at the lung apices. BONES: Multilevel degenerative disc changes with high-grade multilevel foraminal stenosis at C3-4, on the left at C4-5, bilateral C5-6 and C6-7. THYROID: Normal size. No masses. PARANASAL SINUSES: Clear. OTHER: No other significant finding. IMPRESSION: Right-sided parotid mass, subsequently biopsied under ultrasound TECHNICAL DOCUMENTATION: JOB ID: [id number] Quality ID # [id number]: Final reports with documentation of one or more dose reduction techniques (e.g., Au tomated exposure control, adjustment of the mA and/or kV according to patient size, use of iterative reconstruction technique) 2010 [employer]- All Rights Reserved Reading location - IP/workstation name: [email or web address]
--- NOTE | 2018-11-18 13:18 | RADIOLOGY REPORT (SQ) ---
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 TECHNIQUE: The procedure was discussed with the patient and written informed consent obtained. A ti meout was performed to confirm the procedure and patient's identity. The skin of the right neck was prepped and draped in sterile fashion and 5 cc of 1% lidocaine was utilized for local sedation. Unde r sonographic guidance, fine needle aspiration was performed of the complex hypoechoic collection wit hin the right parotid region yielding purulent material. Sample was collected and given to on-site p athology. A 18 gauge needle was utilized to aspirate the collection under ultrasound guidance. Appr oximately 30 cc of purulent material was aspirated and sent to the lab for culture. Attention was focused on the left side. The site was sterilely prepped draped in a standard sterile fashion. Additional 5 cc 1% lidocaine was utilized for local sedation. Under sonographic guidance, fine needle aspiration was performed of the hypoechoic nodule within the left parotid gland. 2 passe s were performed and on-site pathology deemed the specimens adequate. The needle was removed hemosta sis was achieved with manual compression. A sterile dressing was applied. No immediate postprocedural complications. Patient tolerated procedure well left the ultrasound suit e stable condition. LIMITATIONS: None. FINDINGS: Ultrasound evaluation of the right parotid demonstrates hypoechoic collection with interna l debris and septations in the region of the right parotid gland. Intraprocedural imaging demonstrat es needle within the lesion of interest. Postprocedural imaging demonstrates decreased size of the c ollection after aspiration. Ultrasound images of the left demonstrate hypoechoic nodule within the parotid gland. Intraprocedura l imaging demonstrates needle within the region of interest. Postprocedural imaging without evidence of immediate complication. PATHOLOGY: Pending. IMPRESSION: 1. Ultrasound-guided biopsy and aspiration of the right parotid gland as detailed above . Approximately 30 cc of purulent material was aspirated from the right parotid collection in sent t o the lab for culture. 2. Ultrasound-guided fine-needle biopsy of the hypoechoic left parotid nodule as detailed above. COMMENT: Patient medication list reviewed: Yes- Quality ID# [id number]:Eligible professional attests to doc umenting in the medical record they obtained, updated, or reviewed the patient's current medications. TECHNICAL DOCUMENTATION: JOB ID: [id number] [employer]- All Rights Reserved Reading location - IP/workstation name: [email or web address]
== END ==
LOC: RAD 13:58
PROVIDERS: ATTEND Otolaryngology
DX: K11.8 Other diseases of salivary glands (principal)
CPT/HCPCS: 10005; 10006; 70491; 82565; 87070; 87075; 87205; 88173; 88305

== ENCOUNTER → 2019-12-04 | Outpatient (CLI) | payer MEDICARE, BC ==
[2019-12-04 10:07] LABS: HEMATOCRIT 36.3 % (37.9-51.0); HEMOGLOBIN 12.3 g/dL (13.5-17.0); MEAN CORPUSCULAR VOLUME 109 fl (80-97); PLATELET COUNT 127 10^3/uL (150-450); RED BLOOD COUNT 3.33 10^6/uL (4.35-5.55); RED CELL DISTRIBUTION WIDTH 14.9 % (11.5-14.0)
[2019-12-04 10:55] LABS: ABSOLUTE LYMPHOCYTES# (MANUAL) 1.1 10^3/uL (0.5-4.7); ABSOLUTE MONOCYTES # (MANUAL) 0.2 10^3/uL (0.1-1.4); BASOPHILS % (MANUAL) 0 % (0-2); EOSINOPHILS % (MANUAL) 7 % (0-6); LYMPHOCYTES % (MANUAL) 34 % (13-45); MONOCYTES % (MANUAL) 5 % (3-13); SEGMENTED NEUTROPHILS % (MAN) 53 % (42-78); TOTAL CELLS COUNTED 100
[2019-12-04 10:58] LABS: ANISOCYTOSIS SLIGHT; POLYCHROMASIA SLIGHT
[2019-12-04 10:59] LABS: HOWELL-JOLLY BODIES PRESENT; OVALOCYTES 1+; PLATELET COMMENT DECREASED; POIKILOCYTOSIS 1+
[2019-12-04 11:00] LABS: PLATELET LARGE PRESENT
[2019-12-04 11:37] LABS: ALBUMIN 3.4 g/dL (3.5-5.0); ALKALINE PHOSPHATASE 55 U/L (38-126); ANION GAP 6 (5-19); ASPARTATE AMINO TRANSFERASE 19 U/L (17-59); BILIRUBIN,DIRECT 0.4 mg/dL (0.0-0.4); BILIRUBIN,TOTAL 0.9 mg/dL (0.2-1.3); BLOOD UREA NITROGEN 15 mg/dL (7-20); CALCIUM 8.6 mg/dL (8.4-10.2); CARBON DIOXIDE 30 mmol/L (22-30); CHLORIDE 103 mmol/L (98-107); CHOLESTEROL 134.65 mg/dL (0-200); GLUCOSE 80 mg/dL (75-110); POTASSIUM 4.5 mmol/L (3.6-5.0); TOTAL PROTEIN 5.9 g/dL (6.3-8.2); TRIGLYCERIDES 74 mg/dL (<150)
[2019-12-04 11:49] LABS: DIRECT LDL 60 mg/dL (<100)
== END ==
LOC: OD 09:04
PROVIDERS: ATTEND Internal Medicine
DX: J45.909 Unspecified asthma, uncomplicated (principal); M06.9 Rheumatoid arthritis, unspecified; E78.5 Hyperlipidemia, unspecified; R53.83 Other fatigue
CPT/HCPCS: 36415; 80053; 80061; 84443; 85025

== ENCOUNTER → 2020-01-07 | Outpatient (CLI) | payer MEDICARE, BC ==
[2020-01-07 09:02] LABS: HEMATOCRIT 32.9 % (37.9-51.0); HEMOGLOBIN 11.1 g/dL (13.5-17.0); MEAN CORPUSCULAR HEMOGLOBIN 36.8 pg (27.0-33.4); MEAN CORPUSCULAR HGB CONC 33.8 g/dL (32.0-36.0); MEAN CORPUSCULAR VOLUME 109 fl (80-97); RED BLOOD COUNT 3.03 10^6/uL (4.35-5.55); RED CELL DISTRIBUTION WIDTH 15.6 % (11.5-14.0)
[2020-01-07 10:03] LABS: PLATELET COUNT 83 10^3/uL (150-450)
[2020-01-07 10:06] LABS: ABSOLUTE LYMPHOCYTES# (MANUAL) 0.5 10^3/uL (0.5-4.7); ABSOLUTE MONOCYTES # (MANUAL) 0.2 10^3/uL (0.1-1.4); BAND NEUTROPHILS % (MANUAL) 1 % (3-5); BASOPHILS % (MANUAL) 0 % (0-2); EOSINOPHILS % (MANUAL) 1 % (0-6); LYMPHOCYTES % (MANUAL) 13 % (13-45); MONOCYTES % (MANUAL) 7 % (3-13); SEGMENTED NEUTROPHILS % (MAN) 76 % (42-78); TOTAL CELLS COUNTED 100
[2020-01-07 10:07] LABS: ANISOCYTOSIS SLIGHT; PLATELET COMMENT DECREASED; POLYCHROMASIA SLIGHT
--- OUTSIDE RECORDS SUMMARY | 2020-01-08 17:59 | XMS REPORT ---
:1935 Author Organization [facility] Address [facility] [address] [place] [address] Care Team Providers Name Role Phone AGNIESZKAEMRE Primary Care Physician Unavailable Richard Gunn Attending Clinician Unavailable ROSE HYLTON Attending Clinician Unavailable Allergies, Adverse Reactions, Alerts Allergy Allergy Type Status Severity Reaction(s) Onset Inactive Treat ing Comments Name Date Date Clinician Morphine Propensity Active 2018-11 to adverse -11 reactions 00:00:0 0 Sulfa Propensity Active High Swelling 2018-11 (Sulfonami to adverse -11 de reactions 00:00:0 Antibiotic 0 s) Morphine Allergy to Active Sulfate Drug (Ingredien (Finding) t(s): morphine) Sulfur Allergy to Active (Ingredien Drug t(s): (Finding) sulfur iodide) Medications Ordered Filled Start Stop Current Ordering Indication Dosage Frequency Signature Comments Components Medication Medication Date Date Medication? Clinician (SIG) Name Name Denosumab No 60mg Denosumab - 00:00: 00 Denosumab No 60mg Denosumab -20 00:00: 00 hydroxychlo 2018-02 Yes 200mg Take 200 Take 200 roquine 0-11 mg by mg by (PLAQUENIL) 14:30: mouth mouth 200 mg 25 daily. daily. tablet PREDNISONE 2018-02 Yes 7.5mg Take 7.5 Take 7.5 ORAL 0-11 mg by mg by 14:30: mouth mouth 25 daily. daily. HYDROcodone 2018-02 Yes 1{tbl} Take 1 Take 1 -acetaminop 0-11 tablet by tabl et by soledad (NORCO) 14:30: mouth mouth 5-325 mg 25 every six every s ix per tablet (6) hours (6) h ours as needed as needed for pain. for pain. omeprazole 2018-02 Yes 40mg Take 40 mg Cristino e 40 (PRILOSEC) 0-11 by mouth mg by 40 MG 14:30: daily. mouth capsule 25 daily. alfuzosin 2018-02 Yes 10mg Take 10 mg Take 10 (UROXATRAL) 0-11 by mouth mg by 10 mg 24 hr 14:30: daily. mouth tablet 25 daily. finasteride 2018-02 Yes 5mg Take 5 mg Cristino e 5 mg (PROSCAR) 5 0-11 by mouth by mo uth mg tablet 14:30: daily. daily. 25 albuterol 2018-02 Yes 2{puff} Inhale 2 Inha le 2 HFA 90 0-11 puffs puffs mcg/actuati 14:30: every six flaquito ry six on inhaler 25 (6) hours (6) h ours as needed as needed for for wheezing. wheezing. folic acid 2018-02 Yes 400ug Take 400 Take 400 (FOLVITE) 0-11 mcg by mcg by 800 MCG 14:30: mouth mouth tablet 25 daily. daily. calcium 2018-02 Yes 1{tbl} Take 1 Take 1 carbonate 0-11 tablet by tablet by (CALCIUM 14:30: mouth mouth 600) 600 mg 25 daily. daily. calcium (1,500 mg) tablet guaiFENesin 2018-02 Yes 1200mg Take 1,200 T viji (MUCINEX) 0-11 mg by 1,200 mg 600 mg 12 14:30: mouth Two by mo uth hr tablet 25 (2) times Two (2 ) a day. times a day. metroNIDAZO Yes metroNIDAZ LE -19 OLE (METROGEL) 00:00: (METROGEL) 1 % gel 00 1 % gel Denosumab No 60mg Denosumab 09-17 00:00: 00 Denosumab 2019-0 2019- No 60mg Denosumab 16 09-14 00:00: 00:00 00 :00 Albuterol Yes 2 Sulfate Alfuzosin Yes 1 HCl ER Atorvastati Yes 1 n Calcium Omeprazole Yes 1 Plaquenil Yes 1 PredniSONE Yes 1 Proscar Yes 1 Folic Acid 2017- No 1 02-01 11:27 :32 Levo-T 2018- No 02-01 11:28 :09 MetFORMIN 2018- No 2 HCl 02-01 11:28 :14 Methotrexat 2017- No 7 e Sodium 02-01 11:28 :41 MetroNIDAZO 2018- No LE 02-01 11:28 :24 Voltaren 2018- No 02-01 11:28 :54 Albuterol 2017- No Sulfate 02-01 11:27 :18 Alendronate 2018- No 1 Sodium 02-01 11:27 :26 Allergy 2018- No [place] 24 1207 Hour 11:28 :04 Problems Condition Condition Condition Status Onset Resolution Last Treatin g Comments Name Details Category Date Date Treatment Clinician Date Pancytopeni Pancytopeni Diagnosis active a a 03-17 00:00: 00 Senile Senile Diagnosis active osteoporosi osteoporosi s s No known No known [id number] active active problems problems Procedures Procedure Date / Time Performed Performing Clinician Devic e CT NEURO INTERPRETATION OF OUTSIDE 2018-11-28 13:58:44 Arnoldo Hylton FILM ([facility]) Kyphoplasty 2015-02-26 00:00:00 appendectomy cataract removal vasectomy Results Test Description Test Time Test Comments Text Results Atomic Results Result Comments Creatinine 2019-09-15 14:05:00 Test Item Value Reference Range Comments Creatinine (test code = Creatinine) 0.9000 mg/dL 0.5000-1.200 0 Cr Clearance (Est) (test code = Cr Clearance 63.5200 85. 0000-125.0000 (Est)) Glucose (test code = Glucose) 127.0000 mg/dL 70.0000-118.0000 BUN (test code = BUN) 13.0000 mg/dL 7.0000-22.0000 Sodium (test code = Sodium) 137.0000 mmol/L 128.0000-145.0000 Potassium (test code = Potassium) 4.1000 mmol/L 3.6000-5.1000 Chloride (test code = Chloride) 106.0000 mmol/L 96.0000-108.0000 CO2 (test code = CO2) 31.0000 mmol/L 18.0000-33.0000 Calcium (test code = Calcium) 8.4400 mg/dL 8.0000-10.3000 Alkaline Phosphatase (test code = Alkaline 47.0000 42.00 00-141.0000 Phosphatase) ALT (SGPT) (test code = ALT (SGPT)) 8.0000 10.0000-47.0 000 AST (SGOT) (test code = AST (SGOT)) 11.0000 11.0000-37.0 000 Bilirubin, Total (test code = Bilirubin, Total) 0.9000 mg/dL 0.0000-1.6000 Albumin (test code = Albumin) 3.3000 g/dL 3.5000-5.5000 Protein, Total (test code = Protein, Total) 5.0000 g/dL 6.40 00-8.1000 eGFR -Zambian (test code = eGFR 98.0000 60.0000- 200.0000 -Zambian) eGFR Jxk-Nvhoupo-Wvchfcws (test code = eGFR 81.0000 60.0 753-342.0521 Qia-Llzrgiq-Ehncolkw) [id number] 14:04:00 Test Item Value Reference Range Comments WBC (test code = WBC) 3.7000 4.0000-10.0000 Lymphocytes % (test code = Lymphocytes %) 14.9000 % 22.400 0-43.6000 MID% (test code = MID%) 5.2000 % 1.2000-11.2000 Neutrophils % (test code = Neutrophils %) 79.9000 % 48.900 0-69.9000 Lymphocytes (test code = Lymphocytes) 0.5000 1.2000-3.2 000 MID (test code = MID) 0.3000 0.1000-1.1000 Neutrophils (test code = Neutrophils) 2.9000 1.5000-6.7 000 RBC (test code = RBC) 3.2000 3.7000-4.9000 HGB (test code = HGB) 11.3000 g/dL 11.2000-18.0000 HCT (test code = HCT) 34.6000 % 34.0000-44.0000 MCV (test code = MCV) 108.2000 fL 80.0000-94.0000 MCH (test code = MCH) 35.3000 pg 27.0000-34.0000 MCHC (test code = MCHC) 32.6000 g/dL 31.5000-36.0000 RDW (test code = RDW) 16.8000 11.0000-18.0000 PLT (test code = PLT) 73.0000 140.0000-440.0000 MPV (test code = MPV) 10.2000 fL 6.8000-10.6000 [id number] 13:19:00 Test Item Value Reference Range Comments WBC (test code = WBC) 3.4000 4.0000-10.0000 Lymphocytes % (test code = Lymphocytes %) 13.9000 % 22.400 0-43.6000 MID% (test code = MID%) 4.0000 % 1.2000-11.2000 Neutrophils % (test code = Neutrophils %) 82.1000 % 48.900 0-69.9000 Lymphocytes (test code = Lymphocytes) 0.4000 1.2000-3.2 000 MID (test code = MID) 0.2000 0.1000-1.1000 Neutrophils (test code = Neutrophils) 2.8000 1.5000-6.7 000 RBC (test code = RBC) 3.4400 3.7000-4.9000 HGB (test code = HGB) 11.6000 g/dL 11.2000-18.0000 HCT (test code = HCT) 37.6000 % 34.0000-44.0000 MCV (test code = MCV) 109.4000 fL 80.0000-94.0000 MCH (test code = MCH) 33.9000 pg 27.0000-34.0000 MCHC (test code = MCHC) 31.0000 g/dL 31.5000-36.0000 RDW (test code = RDW) 16.5000 11.0000-18.0000 PLT (test code = PLT) 98.0000 140.0000-440.0000 MPV (test code = MPV) 9.5000 fL 6.8000-10.6000 [id number] 13:19:00 Test Item Value Reference Range Comments Creatinine (test code = Creatinine) 0.8000 mg/dL 0.5000-1.200 0 Cr Clearance (Est) (test code = Cr 76.2800 85.0000-125.0 000 Clearance (Est)) Glucose (test code = Glucose) 126.0000 mg/dL 70.0000-118.0000 BUN (test code = BUN) 9.0000 mg/dL 7.0000-22.0000 Sodium (test code = Sodium) 139.0000 mmol/L 128.0000-145.0000 Potassium (test code = Potassium) 3.9000 mmol/L 3.6000-5.1000 Chloride (test code = Chloride) 104.0000 mmol/L 96.0000-108.0000 CO2 (test code = CO2) 33.0000 mmol/L 18.0000-33.0000 Calcium (test code = Calcium) 8.2600 mg/dL 8.0000-10.3000 Alkaline Phosphatase (test code = Alkaline 53.0000 42.00 00-141.0000 Phosphatase) ALT (SGPT) (test code = ALT (SGPT)) 9.0000 10.0000-47.0 000 AST (SGOT) (test code = AST (SGOT)) 12.0000 11.0000-37.0 000 Bilirubin, Total (test code = Bilirubin, 0.5000 mg/dL 0.0000- 1.6000 Total) Albumin (test code = Albumin) 3.6000 g/dL 3.5000-5.5000 Protein, Total (test code = Protein, 5.6000 g/dL 6.4000-8.10 00 Total) eGFR -Zambian (test code = eGFR 112.0000 60.0000- 200.0000 -Zambian) eGFR Xel-Muneonn-Amjrtskr (test code = 93.0000 60.0000-2 00.0000 eGFR Ngt-Hhpndrb-Dsvpllpj) #[id number] 10:36:07CT NEURO INTERPRETATION OF OUTSIDE FILM ([facility]) (11/28/2018 9:58 AM EDT)SpecimenImpressionsPerformed At --Peripherally enhancing, centrally hypoattenuating lesion in the right parotid gland. 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 Recommend further characterization with dedicated chest CT if not recently performed.[facility] RADNarrativePerformed AtEXAM: Computed tomography, soft tissue neck withcontrast material.DATE: 11/28/2018 9:58 AMACCESSION: [id number]: 11/28/2018 10:36 AMINTERPRETATION LOCATION: [facility] CLINICAL INDICATION: 83 years old Male with R22.1 - Neck mass COMPARISON: None. TECHNIQUE: Contrast enhanced CT of the neck is presented for interpretation 11/28/2018 10:36 AM.The study is dated 11/13/2018, was obtained at [facility] and is interpreted at the request of Dr. FRANC HYLTON.Axial CT images of the neck from the skull base through the thoracic inlet after the administration of intravenous contrast. Coronal and sagittal reformatted images, bone and soft tissue algorithm are provided. FINDINGS: The visualized portions of the brain and the posterior fossa demonstrate prominence of the CSF containing spaces, including the sulci and ventricles, compatible with involutional changes, distribution nonspecific. Calcified atherosclerotic disease of the carotid siphons and right V4 segment. Bilateral lens replacement. Globes and orbits otherwise unremarkable. The sinuses and mastoid air cells are unremarkable. Extensive calcified atherosclerotic disease of the carotid siphons. The patient is edentulous. Deep to the skin marker in theupper right neck, there is a 4.0 x 3.0 x 3.3 cm peripherally enhancing, centrally hypoattenuating lesion centered in the posterior right parotid gland. Enhancement is irregular posteromedially within this lesion. There is mass effect upon the adjacent right internal jugular vein, which appears compressed, but remains patent. The paranasal sinuses, orbits, nasopharynx, oropharynx, and oral cavity are normal.The salivary glands, including the parotid glands and submandibular glands, are normal. The larynx, hypopharynx, and thyroid gland are normal. 0.8 cm short axis right intraparotid node in theinferior/anterior aspect of the gland (axial image 49), with a few punctate lymph nodes seen inferiorly to high normal lymph nodes are present in the posteromedial aspect of the left parotid gland, measuring up to 1.0 cm (axial image 49). No acute osseous abnormality or focal lytic or blastic lesion are demonstrated. Grade 1 anterolisthesis of C3 on C4 and C4 on C5. Extensive degenerative disc disease, including marked degenerative changes at the atlantodental articulation, and posterior osteophytesat C5-C6 and C6-C7. Findings result in severe neuroforaminal narrowing at multiple levels, including C3-C4 (right worse than left), C4-C5 on the left, C5-C6 on the left and C6-C7 bilaterally. Emphysematous changes in the visualized upper lungs, with extensive reticular opacities. Calcified granuloma in the left upper lobe. Severe calcified atherosclerotic disease of the aortic arch and great vessels,as well as at the carotid bulbs. Medialized right internal carotid artery. [facility] RADProcedure NoteInterface, Rad Results In - 11/28/2018 12:44 PM EDTEXAM: Computed tomography, soft tissue neck with contrast material. DATE: 11/28/2018 9:58 AM DICTATED: 11/28/2018 10:36 AM INTERPRETATION LOCATION: [facility] CLINICAL INDICATION: 83 years old Male with R22.1 - Neck mass COMPARISON:None. TECHNIQUE: Contrast enhanced CT of the neck is presented for interpretation 11/28/2018 10:36 AM. The study is dated 11/13/2018, was obtained at [facility] and is interpreted at the request of Dr. FRANC HYLTON. Axial CT images of the neck from the skull base through the thoracic inlet after the administration of intravenous contrast. Coronal and sagittal reformatted images, bone and soft tissue algorithm are provided. FINDINGS: The visualized portions of the brain and the posterior fossa demonstrate prominence of the CSF containing spaces, including the sulci and ventricles, compatible with involutional changes, distribution nonspecific. Calcified atherosclerotic disease of the carotid siphons and right V4 segment. Bilateral lens replacement. Globes and orbits otherwise unremarkable. The sinuses and mastoid air cells are unremarkable. Extensive calcified atherosclerotic disease of the carotid siphons. The patient is edentulous. Deep to the skin marker in the upper rightneck, there is a 4.0 x 3.0 x 3.3 cm peripherally enhancing, centrally hypoattenuating lesion centered in the posterior right parotid gland. Enhancement is irregular posteromedially within this lesion. There is mass effect upon the adjacent right internal jugular vein, which appears compressed, but remains patent. The paranasal sinuses, orbits, nasopharynx, oropharynx, and oral cavity are normal. The salivary glands, including the parotid glands and submandibular glands, are normal. The larynx, hypopharynx, and thyroid gland are normal. 0.8 cm short axis right intraparotid node in the inferior/anterior aspect of the gland (axial image 49), with a few punctate lymph nodes seen inferiorly to high normal lymph nodes are present in the posteromedial aspect of the left parotid gland, measuring up to 1.0 cm (axial image 49). No acute osseous abnormality or focal lytic or blastic lesion are demonstrated. Grade 1 anterolisthesis of C3 on C4 and C4 on C5. Extensive degenerative disc disease, including marked degenerative changes at the atlantodental articulation, and posterior osteophytes at C5-C6 and C6-C7. Findings result in severe neuroforaminal narrowing at multiple levels, including C3-C4 (right worse than left), C4-C5 on the left, C5-C6 on the left and C6-C7 bilaterally. Emphysematous changes inthe visualized upper lungs, with extensive reticular opacities. Calcified granuloma in the left upper lobe. Severe calcified atherosclerotic disease of the aortic arch and great vessels, as well as at the carotid bulbs. Medialized right internal carotid artery. IMPRESSION: -- Peripherally enhancing, centrally hypoattenuating lesion in the right parotid gland. 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 -- High-normal intraparotid and periparotid lymph nodes are present bilaterally, nonspecific. -- Emphysema and reticular opacities in the visualized upper lobes. Recommend further characterization with dedicated chest CT if not recently performed.Performing OrganizationAddressCity/State/ZipcodePhone NumberJ[facility] [id number] [facility].[place], [place] [id number] 13:06:00 Test Item Value Reference Range Comments Creatinine (test code = Creatinine) 0.9000 mg/dL 0.5000-1.200 0 Cr Clearance (Est) (test code = Cr 65.3700 85.0000-125.0 000 Clearance (Est)) Glucose (test code = Glucose) 193.0000 mg/dL 70.0000-118.0000 BUN (test code = BUN) 11.0000 mg/dL 7.0000-22.0000 Sodium (test code = Sodium) 139.0000 mmol/L 128.0000-145.0000 Potassium (test code = Potassium) 4.1000 mmol/L 3.6000-5.1000 Chloride (test code = Chloride) 100.0000 mmol/L 96.0000-108.0000 CO2 (test code = CO2) 30.0000 mmol/L 18.0000-33.0000 Calcium (test code = Calcium) 8.7400 mg/dL 8.0000-10.3000 Alkaline Phosphatase (test code = Alkaline 53.0000 42.00 00-141.0000 Phosphatase) ALT (SGPT) (test code = ALT (SGPT)) 10.0000 10.0000-47.0 000 AST (SGOT) (test code = AST (SGOT)) 8.0000 11.0000-37.0 000 Bilirubin, Total (test code = Bilirubin, 0.7000 mg/dL 0.0000- 1.6000 Total) Albumin (test code = Albumin) 3.6000 g/dL 3.5000-5.5000 Protein, Total (test code = Protein, 5.3000 g/dL 6.4000-8.10 00 Total) eGFR -Zambian (test code = eGFR 98.0000 60.0000- 200.0000 -Zambian) eGFR Boy-Hhrjpld-Dxerlpku (test code = 81.0000 60.0000-2 00.0000 eGFR Czj-Mdzmndc-Nufgltjj) [id number] 11:45:00 Test Item Value Reference Range Comments Creatinine (test code = Creatinine) 0.7000 mg/dL 0.5000-1.200 0 Cr Clearance (Est) (test code = Cr 82.9400 85.0000-125.0 000 Clearance (Est)) Glucose (test code = Glucose) 100.0000 mg/dL 70.0000-118.0000 BUN (test code = BUN) 12.0000 mg/dL 7.0000-22.0000 Sodium (test code = Sodium) 137.0000 mmol/L 128.0000-145.0000 Potassium (test code = Potassium) 4.2000 mmol/L 3.6000-5.1000 Chloride (test code = Chloride) 107.0000 mmol/L 96.0000-108.0000 CO2 (test code = CO2) 28.0000 mmol/L 18.0000-33.0000 Calcium (test code = Calcium) 8.4600 mg/dL 8.0000-10.3000 Alkaline Phosphatase (test code = Alkaline 60.0000 42.00 00-141.0000 Phosphatase) ALT (SGPT) (test code = ALT (SGPT)) 10.0000 10.0000-47.0 000 AST (SGOT) (test code = AST (SGOT)) 13.0000 11.0000-37.0 000 Bilirubin, Total (test code = Bilirubin, 0.6000 mg/dL 0.0000- 1.6000 Total) Albumin (test code = Albumin) 3.7000 g/dL 3.5000-5.5000 Protein, Total (test code = Protein, 6.2000 g/dL 6.4000-8.10 00 Total) eGFR -Zambian (test code = eGFR 131.0000 60.0000- 200.0000 -Zambian) eGFR Vog-Gephejg-Chffjhru (test code = 109.0000 60.0000-2 00.0000 eGFR Pxs-Ccvelpu-Shycjkir) Encounters Start End Encounter Admission Attending Care Care Encounter Date/Time Date/Time Type Type Clinicians Facility Department ID 2019-10-29 2019-10-29 Outpatient Patric Ramos n [id number] 00:00:00 00:00:00 Ziggy vo [facility] [place] 2019-09-15 2019-09-15 Richard Ramos [facility] [id number] 00:00:00 00:00:00 Dr. Ziggy Trinh rn [facility] [place] 2019-03-17 2019-03-17 Richard Maloney [facility] 2 [id number] 00:00:00 00:00:00 Christiane Trinh rn [facility] [place] 2019-03-10 2019-03-10 Outpatient Patric Ramos n [id number] 00:00:00 00:00:00 Ziggy vo [facility] Medical [facility]cology Oncology [facility] 2019-02-27 2019-02-27 Outpatient [facility] [id number] 00:00:00 00:00:00 tavo [facility] 2018-12-06 2018-12-06 Outpatient EL [facility] [id number] 13:45:38 15:41:26 [id number] 2018-12-06 2018-12-06 Outpatient [facility] [id number] 13:45:38 15:41:26 2018-12-06 2018-12-06 Outpatient [facility] [id number] 00:00:00 00:00:00 [id number] 2018-12-04 Outpatient [facility] [id number] 00:00:00 00:00:00 2018-12-02 2018-12-02 Outpatient [facility] [id number] 00:00:00 00:00:00 [id number] 2018-11-29 Outpatient [facility] [id number] 00:00:00 23:59:00 [id number] 2018-11-28 Outpatient HYLTON, [facility] [id number] 09:57:41 23:59:00 FRANC [id number] 2018-11-28 2018-11-28 Outpatient [facility] [id number] 09:57:00 23:59:00 2018-11-28 2018-11-28 Outpatient [facility] [id number] 00:00:00 00:00:00 2018-11-27 2018-11-27 [id number] 00:00:00 00:00:00 2018-09-17 2018-09-17 Andrew MaloneyPatric vargas 2 [id number] 00:00:00 00:00:00 Christiane Trinh rn [facility] [place] 2018-09-09 2018-09-09 Outpatient Patric Gamble [id number] 00:00:00 00:00:00 rn [facility] [place] 2018-03-13 2018-03-13 Outpatient Patric Ramos n [id number] 00:00:00 00:00:00 Ziggy vo [facility] [place] 2018-02-25 2018-02-25 Outpatient Patric Gamble [id number] 00:00:00 00:00:00 rn [facility] [place] 2018-02-12 2018-02-12 Outpatient Patric Ramos n [id number] 00:00:00 00:00:00 [facility] [place] 2018-02-01 2018-02-01 Andrew MaloneyPatric vargas 2 [id number] 00:00:00 00:00:00 Christiane Trinh rn [facility] [place] 2018-01-24 2018-01-24 Outpatient [facility] [id number] 00:00:00 00:00:00 rn [facility] [place] 2018-01-21 2018-01-21 Outpatient Pat[facility] [id number] 00:00:00 00:00:00 rn [facility] [place] 2018-01-14 2018-01-14 Outpatient [facility] [id number] 00:00:00 00:00:00 rn [facility] [place] 2017-09-03 2017-09-03 Outpatient [facility] [id number] 00:00:00 00:00:00 rn [facility] [place] Payers Payer Name Policy Type Policy Number Effective Date Expiration D ate MEDICARE PART A AND [id number] 2001 00:00:00 PART B BCBS COMP MMED/MCARE [id number] 2018 00:00:0 0 SUPP Plan of Treatment Planned Activity Planned Date Details Comments Future Scheduled Test [code = ] Future Scheduled Test [code = ] Future Scheduled Test [code = ] Future Scheduled Test [code = ] Social History Social Habit Start Date Stop Date Comments History of tobacco use History SDOH Alcohol Std Drinks History SDOH Alcohol Binge Tobacco smoking status [facility] 2018-12-08 00:00:00 2018-12-08 00:00 :00 Cigarettes smoked current (pack per 2018-12-08 00:00:00 00:00:00 day) - Reported Alcohol intake 2018-12-08 00:00:00 2018-12-08 00:00:00 History SDOH Alcohol Frequency 2018-12-06 00:00:00 2018-12-06 00 :00:00 Smoking Status Start Date Stop Date Yes - but quit (former) 2019-03-17 13:35:44 2019-03-17 13:35 :44 Social History Observation Description Sex Male Vital Signs Vital Name Observation Time Observation Value Comments BMI 2019-09-15 14:14:37 28.2000 BP [place] 2019-09-15 14:14:37 95.0000 mm[Hg] Bdy height 2019-09-15 14:14:37 63.0000 [in_i] SaO2% BldA PulseOx 2019-09-15 14:14:37 97.0000 % Heart rate 2019-09-15 14:14:37 71.0000 /min Resp rate 2019-09-15 14:14:37 18.0000 /min BP sys 2019-09-15 14:14:37 139.0000 mm[Hg] Body temperature 2019-09-15 14:14:37 98.8000 [degF] Weight 2019-09-15 14:14:37 159.2000 [lb_av] BMI 2019-03-17 13:34:58 29.5800 BP [place] 2019-03-17 13:34:58 75.0000 mm[Hg] Bdy height 2019-03-17 13:34:58 63.0000 [in_i] SaO2% BldA PulseOx 2019-03-17 13:34:58 98.0000 % Heart rate 2019-03-17 13:34:58 75.0000 /min Resp rate 2019-03-17 13:34:58 16.0000 /min BP sys 2019-03-17 13:34:58 113.0000 mm[Hg] Body temperature 2019-03-17 13:34:58 97.4000 [degF] Weight 2019-03-17 13:34:58 167.0000 [lb_av] Systolic blood pressure 2018-12-06 14:15:00 128 mm[Hg] Diastolic blood pressure 2018-12-06 14:15:00 62 mm[Hg] Heart rate 2018-12-06 14:15:00 76 /min Body temperature 2018-12-06 14:15:00 36.61 Che Respiratory rate 2018-12-06 14:15:00 18 /min Body height 2018-12-06 14:15:00 170.2 cm Body weight 2018-12-06 14:15:00 73.573 kg Oxygen saturation in Arterial blood by 2018-12-06 14:15:00 93 % Pulse oximetry BMI 2018-09-17 13:48:40 28.5200 BP [place] 2018-09-17 13:48:40 69.0000 mm[Hg] Bdy height 2018-09-17 13:48:40 63.0000 [in_i] SaO2% BldA PulseOx 2018-09-17 13:48:40 94.0000 % Heart rate 2018-09-17 13:48:40 69.0000 /min Resp rate 2018-09-17 13:48:40 18.0000 /min BP sys 2018-09-17 13:48:40 131.0000 mm[Hg] Body temperature 2018-09-17 13:48:40 97.5000 [degF] Weight 2018-09-17 13:48:40 161.0000 [lb_av] BMI 2018-03-13 09:38:49 27.8800 BP [place] 2018-03-13 09:38:49 66.0000 mm[Hg] Bdy height 2018-03-13 09:38:49 63.0000 [in_i] SaO2% BldA PulseOx 2018-03-13 09:38:49 93.0000 % Heart rate 2018-03-13 09:38:49 76.0000 /min Resp rate 2018-03-13 09:38:49 18.0000 /min BP sys 2018-03-13 09:38:49 113.0000 mm[Hg] Body temperature 2018-03-13 09:38:49 98.6000 [degF] Weight 2018-03-13 09:38:49 157.4000 [lb_av] BMI 2018-02-01 11:25:51 27.6700 BP [place] 2018-02-01 11:25:51 53.0000 mm[Hg] Bdy height 2018-02-01 11:25:51 63.0000 [in_i] Heart rate 2018-02-01 11:25:51 77.0000 /min Resp rate 2018-02-01 11:25:51 16.0000 /min BP sys 2018-02-01 11:25:51 103.0000 mm[Hg] Body temperature 2018-02-01 11:25:51 97.4000 [degF] Weight 2018-02-01 11:25:51 156.2000 [lb_av]
== END ==
LOC: OD 07:52
PROVIDERS: ATTEND Internal Medicine
DX: B34.9 Viral infection, unspecified (principal)
CPT/HCPCS: 36415; 85025

== ENCOUNTER → 2020-02-09 | Outpatient (CLI) | payer MEDICARE, BC ==
--- NOTE | 2020-02-09 10:58 | WOMENS IMAGING REPORT ---
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 LIMITATIONS: None. FINDINGS: HIP: The bone mineral density (BMD) measured in the left femoral neck at the hip correlates with a T-score of +1.3, which is osteopenic as defined by the World Health Organization. BMD Change vs Baseline: This is similar compared to 2018 FOREARM: The bone mineral density (BMD) measured in the left distal forearm correlates with a T-score of -2.1 which is osteopenic as defined by the World Health Organization. BMD Change vs Baseline: This represents a 6% increase in bone density 2018 10 year Fracture Risk Assessment: Major Osteoporotic Fracture: Not available. Hip Fracture: Not available. IMPRESSION: 1. HIP WHO CLASSIFICATION: Osteopenic 2. FOREARM WHO CLASSIFICATION: Osteopenic OVERALL ASSESSMENT: WHO CLASSIFICATION: Osteopenic COMMENT: The World Health Organization defines low BMD as follows: T-score: Normal: At or above -1.0 Osteopenia: Between -1.0 and -2.5 Osteoporosis: At or below -2.5 without fractures Established osteoporosis: At or below -2.5 with fractures In general, you may wish to consider: Diagnosis Treatment Follow-up DEXA Normal BMD Prevention 2-3 years Osteopenia Prevention/Therapy 1-2 years Osteoporosis Therapy Yearly TECHNICAL DOCUMENTATION: JOB ID: [id number] 2010 [employer]- All Rights Reserved Reading location - IP/workstation name: [email or web address]
== END ==
LOC: WI 10:14
PROVIDERS: ATTEND Physician Assistant Medical
DX: M81.0 Age-related osteoporosis without current pathological fracture (principal)
CPT/HCPCS: 77080